=== PATIENT | male | born 1950 | race Caucasian/White ===

== ENCOUNTER → 2019-01-27 16:26 | Outpatient (CLI) | payer MEDICARE, SELFPAY ==
--- NOTE | 2019-01-27 | DI.MRI.S_ITS ---
PROCEDURE: MR KNEE LT WO CON INDICATIONS: Left knee pain. Painful to bend knee TECHNIQUE: Noncontrast sagittal PD fast spin echo and T2 fast spin echo with fat saturation, sagittal 3-D FLASH with fat saturation; coronal T1 spin echo and PD fast spin echo with fat saturation, and axial PD fast spin echo with fat saturation through the knee. COMPARISON: [facility] , MR, KNEE LT W/O CONTRAST, 01/13/2009, 9:45. FINDINGS: Image quality: Excellent. Menisci: There is medial meniscal extrusion. The medial meniscus is truncated, compatible with prior meniscectomy. The lateral meniscus demonstrates normal morphology and internal signal. The meniscal root ligaments appear intact. Cruciate ligaments: The anterior and posterior cruciate ligaments appear intact. Medial structures: The medial collateral ligament appears intact. The semimembranosus tendon insertionsand meniscocapsular junction appear intact. Visualized portions of the pes anserinus tendons appear normal. No abnormal bursal fluid. Lateral structures: The lateral collateral ligament and the biceps femoris tendon appear intact. The popliteus tendon appears normal. Iliotibial band appears normal. Anterior structures: The quadriceps is completely torn at the patellar insertion. There is 8 mm proximal retraction of the quadriceps tendon. The patellar tendon appears intact but thickened and irregular, consistent with tendinitis. Patellar is inferiorly subluxed secondary to quadriceps tendon rupture. No femoral trochlear dysplasia or ventral trochlear prominence. No edema in the infrapatellar fat pad. Bones and cartilage: No bone marrow contusions or fractures. There is tricompartmental cartilage thinning and signal degeneration, most pronounced in the patellofemoral compartment and medial femorotibial compartments. Joint space: There is moderate knee joint effusion. No Shelley's cyst. Normal appearing synovial plicae are incidentally noted. There is diffuse soft tissue edema around the knee. IMPRESSION: 1. Quadriceps tendon rupture with tendon retraction and inferior subluxation of patella. 2. The medial meniscal is truncated consistent with meniscectomy. There is medial meniscal extrusion. 3. Patella tendinitis. 4. Moderate knee joint effusion. 5. 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 6. Diffuse soft tissue edema around the knee. Dictated by: Liliana Acosta M.D. on 01/28/2019 at 7:34 Transcribed by: LYUBOV on 01/28/2019 at 7:37 Approved by: Liliana Acosta M.D. on 01/28/2019 at 9:08
== END ==
PROVIDERS: Family Provider Family Medicine; PCP Family Medicine; Visit Provider Physician Assistant
DX: M25.562 Pain in left knee (principal); M25.462 Effusion, left knee; S76.112A Strain of left quadriceps muscle, fascia and tendon, initial encounter; X58.XXXA Exposure to other specified factors, initial encounter; M76.52 Patellar tendinitis, left knee
CPT/HCPCS: 73721

== ENCOUNTER → 2021-04-06 08:57 | Outpatient (CLI) | payer MEDICARE, OTHER, SELFPAY ==
[2021-04-06 19:11] LABS: Add Manual Diff / Slide Review NO; Basophils Absolute Auto 100 /uL (0-100); Eosinophils Absolute Auto 200 /uL (0-450); Eosinophils Percent Auto 3.2 % (2-4); Hematocrit 41.9 % (41-53); Hemoglobin 14.5 g/dL (13.5-17.5); Lymphocytes Absolute Auto 2500 /uL (1100-4500); Lymphocytes Percent Auto 32.9 % (25-40); Mean Corpuscular HGB Conc 34.5 % (30-36); Mean Corpuscular Hemoglobin 30.6 PG (26-34); Mean Corpuscular Volume 88.9 fL (80-100); Monocytes Absolute Auto 700 /uL (0-900); Monocytes Percent Auto 9.5 % (3-14); Neutrophils Absolute Auto 4100 /uL (1500-7000); Neutrophils Percent Auto 53.4 % (50-75); Platelet Count 229 X10^3/uL (150-400); Red Blood Cell Count 4.72 X10^6/uL (4.5-5.9); White Blood Cell Count 7.6 X10^3/uL (4.5-11.0)
[2021-04-06 19:28] LABS: Alanine Aminotransferase 30 IU/L (<50); Albumin 4.2 g/dL (3.5-5.0); Albumin Globulin Ratio 1.6 (1.0-2.8); Alkaline Phosphatase 44 U/L (38-126); Aspartate Aminotransferase 55 IU/L (17-59); Bilirubin Total 0.9 mg/dL (0.2-1.3); Blood Urea Nitrogen 24 mg/dL (9-20); Calcium 9.4 mg/dL (8.4-10.2); Carbon Dioxide 30 mmol/L (22-32); Chloride 106 mmol/L (98-107); Cholesterol 151 mg/dL (140-199); Estimated Glomerular Filt Rate > 60.0 mL/min (>60); Globulin 2.6 g/dL (1.7-4.1); Glucose 91 mg/dL (80-110); HDL Cholesterol 54 mg/dL (40-60); HEMOLYSIS < 15 (0-50); LDL Cholesterol Calculated 76 mg/dL (<100); Potassium 4.3 mmol/L (3.4-5.1); Sodium 141 mmol/L (137-145); Total Protein 6.8 g/dL (6.3-8.2); Triglycerides 107 mg/dL (35-150)
[2021-04-06 20:04] LABS: Prostate Specific Antigen < 0.064 ng/mL (0.10-4.00)
== END ==
PROVIDERS: Family Provider Family Medicine; PCP Physician Assistant; Visit Provider Physician Assistant
DX: Z13.220 Encounter for screening for lipoid disorders (principal); C61 Malignant neoplasm of prostate; Z12.5 Encounter for screening for malignant neoplasm of prostate
CPT/HCPCS: 80053; 80061; 84153; 85025

== ENCOUNTER → 2022-04-23 10:19 | Outpatient (CLI) | payer MEDICARE, OTHER, SELFPAY ==
[2022-04-23 11:18] LABS: Alanine Aminotransferase 36 IU/L (<50); Albumin 4.3 g/dL (3.5-5.0); Albumin Globulin Ratio 1.4 (1.0-2.8); Alkaline Phosphatase 46 U/L (38-126); Aspartate Aminotransferase 65 IU/L (17-59); Bilirubin Total 0.9 mg/dL (0.2-1.3); Blood Urea Nitrogen 24 mg/dL (9-20); Calcium 9.2 mg/dL (8.4-10.2); Carbon Dioxide 31 mmol/L (22-32); Chloride 103 mmol/L (98-107); Estimated Glomerular Filt Rate > 60 mL/min (>60); Glucose 88 mg/dL (80-110); HEMOLYSIS < 15 (0-50); Potassium 4.4 mmol/L (3.4-5.1); Sodium 139 mmol/L (137-145); Total Protein 7.3 g/dL (6.3-8.2)
[2022-04-23 11:48] LABS: Prostate Specific Antigen < 0.064 ng/mL (0.10-4.00)
== END ==
PROVIDERS: Family Provider Family Medicine; PCP Physician Assistant; Referring Provider Physician Assistant; Visit Provider Physician Assistant
DX: C61 Malignant neoplasm of prostate (principal); Z12.5 Encounter for screening for malignant neoplasm of prostate
CPT/HCPCS: 36415; 80053; 84153

== ENCOUNTER → 2022-06-14 10:12 | Outpatient (CLI) | payer MEDICARE, OTHER, SELFPAY ==
[2022-06-14 18:40] LABS: D Dimer 676 ng/ml (<500)
[2022-06-14 18:50] LABS: Add Manual Diff / Slide Review NO; Basophils Absolute Auto 100 /uL (0-100); Eosinophils Absolute Auto 300 /uL (0-450); Eosinophils Percent Auto 4.2 % (2-4); Hematocrit 42.3 % (41-53); Hemoglobin 14.5 g/dL (13.5-17.5); Lymphocytes Absolute Auto 2500 /uL (1100-4500); Lymphocytes Percent Auto 31.6 % (25-40); Mean Corpuscular HGB Conc 34.2 % (30-36); Mean Corpuscular Hemoglobin 30.4 PG (26-34); Mean Corpuscular Volume 88.9 fL (80-100); Monocytes Absolute Auto 800 /uL (0-900); Monocytes Percent Auto 10.3 % (3-14); Neutrophils Absolute Auto 4200 /uL (1500-7000); Neutrophils Percent Auto 52.9 % (50-75); Platelet Count 222 X10^3/uL (150-400); Red Blood Cell Count 4.76 X10^6/uL (4.5-5.9); Red Cell Distribution Width 14.1 % (11.6-14.8)
[2022-06-14 18:58] LABS: Alanine Aminotransferase 38 IU/L (<50); Albumin 4.3 g/dL (3.5-5.0); Albumin Globulin Ratio 1.7 (1.0-2.8); Alkaline Phosphatase 54 U/L (38-126); Aspartate Aminotransferase 63 IU/L (17-59); Bilirubin Total 1.1 mg/dL (0.2-1.3); Blood Urea Nitrogen 25 mg/dL (9-20); Calcium 9.6 mg/dL (8.4-10.2); Carbon Dioxide 28 mmol/L (22-32); Chloride 104 mmol/L (98-107); Estimated Glomerular Filt Rate > 60 mL/min (>60); Globulin 2.6 g/dL (1.7-4.1); Glucose 83 mg/dL (80-110); HEMOLYSIS < 15 (0-50); Potassium 4.5 mmol/L (3.4-5.1); Sodium 138 mmol/L (137-145); Total Protein 6.9 g/dL (6.3-8.2)
[2022-06-14 19:07] LABS: NT-proBNP (BNP-Adult 18+) 437 pg/mL (<125)
[2022-06-14 19:29] LABS: TSH w/ Reflex to FT4 2.69 uIU/mL (0.47-4.68)
== END ==
PROVIDERS: Family Provider Family Medicine; PCP Physician Assistant; Visit Provider Physician Assistant
DX: Z95.3 Presence of xenogenic heart valve (principal); R06.02 Shortness of breath; R53.83 Other fatigue
CPT/HCPCS: 80053; 83880; 84443; 85025; 85379

== ENCOUNTER → 2022-07-04 08:35 | Outpatient (CLI) | payer MEDICARE, OTHER, SELFPAY ==
--- NOTE | 2022-07-08 09:02 | PM.PFT.1 ---
Pulmonary Function Test Referral & Results Date Patient Seen: 07/04/22 Results: The spirometry demonstrates an FVC of 4.05 L which is 91% of predicted. The FEV1 was measured at 3.15 L which is 97% of predicted. The FEV1/FVC ratio was 78 which is 106% of predicted. Following the administration of bronchodilator there was a 10% improvement in FEV1 and a 55% improvement in FEF 25-75%. Lung volumes show an SVC of 4.40 L which is 94% of predicted. The diffusing capacity was measured at 20.37 which is 60% of predicted. No hemoglobin value was provided, so no correction for potential anemia could be made, if appropriate. 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
== END ==
PROVIDERS: Family Provider Family Medicine; PCP Physician Assistant; Referring Provider Physician Assistant; Visit Provider Physician Assistant
DX: R06.02 Shortness of breath (principal); J98.8 Other specified respiratory disorders
CPT/HCPCS: 94060; 94726; 94729

== ENCOUNTER → 2022-07-30 08:34 | Outpatient (CLI) | payer MEDICARE, OTHER, SELFPAY ==
[2022-07-30 10:12] LABS: D Dimer 575 ng/ml (<500)
[2022-07-30 11:24] LABS: Alanine Aminotransferase 31 IU/L (<50); Albumin Globulin Ratio 1.9 (1.0-2.8); Alkaline Phosphatase 46 U/L (38-126); Aspartate Aminotransferase 51 IU/L (17-59); BUN Creatinine Ratio 26.5 (6-22); Bilirubin Total 0.9 mg/dL (0.2-1.3); Blood Urea Nitrogen 26 mg/dL (9-20); Calcium 8.8 mg/dL (8.4-10.2); Carbon Dioxide 29 mmol/L (22-32); Chloride 104 mmol/L (98-107); Estimated Glomerular Filt Rate > 60 mL/min (>60); Globulin 2.1 g/dL (1.7-4.1); Glucose 78 mg/dL (80-110); HEMOLYSIS < 15 (0-50); Potassium 4.2 mmol/L (3.4-5.1); Sodium 138 mmol/L (137-145); Total Protein 6.1 g/dL (6.3-8.2)
== END ==
PROVIDERS: Family Provider Family Medicine; PCP Physician Assistant; Referring Provider Physician Assistant; Visit Provider Physician Assistant
DX: R74.01 Elevation of levels of liver transaminase levels (principal); R79.89 Other specified abnormal findings of blood chemistry
CPT/HCPCS: 36415; 80053; 85379

== ENCOUNTER → 2022-10-09 11:49 | Outpatient (CLI) | payer MEDICARE, OTHER, SELFPAY ==
[2022-10-09 13:34] LABS: Prostate Specific Antigen Scrn < 0.064 ng/mL (0.1-4.0)
== END ==
PROVIDERS: Family Provider Family Medicine; PCP Physician Assistant; Referring Provider Physician Assistant; Visit Provider Physician Assistant
DX: Z12.5 Encounter for screening for malignant neoplasm of prostate (principal)
CPT/HCPCS: 36415; G0103

== ENCOUNTER → 2023-05-27 13:03 | Outpatient (CLI) | payer MEDICARE, OTHER, SELFPAY ==
[2023-05-27 19:51] LABS: Prostate Specific Antigen < 0.064 ng/mL (0.10-4.00)
== END ==
PROVIDERS: Family Provider Family Medicine; PCP Family Medicine; Visit Provider Family Medicine
DX: C61 Malignant neoplasm of prostate (principal)
CPT/HCPCS: 84153

== ENCOUNTER → 2023-10-20 11:58 | Outpatient (CLI) | payer MEDICARE, OTHER, SELFPAY ==
[2023-10-20 20:56] LABS: Prostate Specific Antigen < 0.064 ng/mL (0.10-4.00)
== END ==
PROVIDERS: Family Provider Family Medicine; PCP Family Medicine; Visit Provider Family Medicine
DX: C61 Malignant neoplasm of prostate (principal)
CPT/HCPCS: 84153

== ENCOUNTER → 2024-09-14 08:58 | Outpatient (CLI) | payer MEDICARE, OTHER, SELFPAY ==
--- NOTE | 2024-09-14 08:59 | DI.ECHO.S_ITS ---
[facility] : : [id number] : : [id number] : : Phone: [phone] Echocardiogram Report + + :Name: HUBER MULLEN Study Date: 09/14/2024 Height: 72 in : :[facility] ReadingLocation: Weight: 178 lb : : Gender: Male BSA: 2.0 m2 : :: 1950 Age: 73 yrs BP: 125/89 mmHg: :Reason For Study: NEAR SYNCOPE : :Ordering Physician: RICHARD, : :LUIS Performed By: Yasmnay Hameed : :Referring: LUIS RAMOS : + + Interpretation Summary 1) Normal left ventricular thickness, size, wall motion, and systolic function (EF 55-60%). 2) Mildly enlarged right ventricle with normal function. 3) The left atrium is severely dilated. 4) There is a bioprosthetic aortic valve that is well seated and opens reasonably well (mean gradient 22mmHg). There is trace aortic regurgitation. 5) The right ventricular systolic pressure is estimated to be at least 46 mmHg based on an estimated right atrial pressure of 8 mm Hg. 6) Compared to the Echo done 06/01/2013, bioprosthetic aortic valve is present on this study. Procedure: A two-dimensional transthoracic echocardiogram with color flow and Doppler was performed. The study quality was technically good. There is no prior echocardiogram noted for this patient. The patient was in normal sinus rhythm during the exam. Left Ventricle: The left ventricle is normal in size. There is normal left ventricular wall thickness. There is no ventricular septal defect visualized. The ejection fraction is estimated to be 55-60%. There are no focal wall motion abnormalities. Diastolic parameters suggest probable normal left ventricular diastolic function and normal filling pressures. Right Ventricle: The right ventricle is mildly dilated. The right ventricular systolic function is normal. Atria: The left atrium is severely dilated. The right atrium is severely dilated. There is no Doppler evidence for an interatrial shunt. Mitral Valve: The mitral valve leaflets appear mildly thickened, but open well. There is mild mitral annular calcification. There is borderline mitral valve prolapse. There is mild mitral regurgitation. Aortic Valve: The aortic valve is mildly calcified. There is a bioprosthetic aortic valve. The peak aortic velocity is 3.22 m/sec. The aortic valve mean gradient is 21.8 mmHg. There is trace aortic regurgitation. Tricuspid Valve: The tricuspid valve leaflets are thin and pliable. There is mild tricuspid regurgitation. The right ventricular systolic pressure is estimated to be at least 46 mmHg based on an estimated right atrial pressure of 8 mm Hg. Pulmonic Valve: The pulmonic valve leaflets are thin and pliable; valve motion is normal. There is mild pulmonic regurgitation. Great Vessels: The aortic root is mildly dilated. The ascending aorta is moderately enlarged. The pulmonary artery is normal size. The IVC is dilated (diameter is greater than 2.1 cm) yet it collapses greater than 50% with a sniff. This suggests a right atrial pressure of 8 mm Hg. Pericardium/ Pleura There is no pericardial effusion. There is no pleural effusion. MMode/2D Measurements & Calculations LVIDd: 5.9 cm LVOT diam: 2.3 cm LVIDs: 4.4 cm Ao root diam: 4.3 cm FS: 26.4 % asc Aorta Diam: 4.6 cm EPSS: 0.78 cm Ao Arch Diam (Prox Trans): 3.8 cm IVSd: 0.97 cm LVPWd: 1.0 cm LV alford. diameter/BSA (cm/m^2): 2.9 LV sys. diameter/BSA (cm/m^2): 2.2 LA A2 area: 31.6 cm2 RA long axis: 7.0 cm LA A4 area: 25.3 cm2 RA area: 36.4 cm2 LA length (vol): 6.5 cm RA vol: 159.8 ml LA vol: 104.4 ml RA : 78.8 ml/m2 LA vol index: 51.5 ml/m2 IVC diam: 3.0 cm RVD1 (basal): 4.8 cm RVD2 (mid): 3.0 cm TAPSE: 2.8 cm Doppler Measurements & Calculations Ao V2 max: 322.4 cm/sec LVOT Max Cristo: 100.8 cm/sec Ao V2 mean: 219.8 cm/sec LV V1 max P.1 mmHg Ao max P.6 mmHg LV V1 VTI: 23.4 cm Ao mean P.8 mmHg GRETEL(I,D): 1.5 cm2 Ao V2 VTI: 65.3 cm GRETEL(V,D): 1.3 cm2 sev ratio: 0.36 GRETEL indexed to BSA (cm^2/m^2): 0.76 MV E max cristo: 52.3 cm/sec TR max cristo: 310.1 cm/sec MV A max cristo: 26.8 cm/sec TR max P.5 mmHg MV E/A: 2.0 PA V2 max: 133.7 cm/sec Med Peak E' Cristo: 8.6 cm/sec PA V2 mean: 95.1 cm/sec E/E' med: 6.1 PA mean P.1 mmHg Lat Peak E' Cristo: 10.5 cm/sec PA pr(Accel): 37.9 mmHg E/E' lat: 5.0 E/e' average: 5.5 MV dec time: 0.20 sec SV(LVOT): 100.3 ml Reading Physician:[id number] PM
--- NOTE | 2024-09-14 08:59 | DI.MRI.S_ITS ---
PROCEDURE: MR ANGIO HEAD WO CON INDICATIONS: Loss of strength left arm and leg TECHNIQUE: Noncontrast axial 3-D [id number] MR angiogram, with 3-dimensional maximum intensity projection (MIP) reformats of the internal carotid arteries and posterior circulation then performed. COMPARISON: None. FINDINGS: Image quality: Excellent. Anterior circulation: Intracranial internal carotid arteries demonstrate normal size and intraluminal flow signal. The flow within the paired anterior cerebral arteries is normal and symmetric. The flow within the middle cerebral arteries is normal and symmetric. The anterior communicating artery is seen. No stenoses, occlusions, or aneurysms. Posterior circulation: Visualized portions of the vertebral arteries demonstrate normal caliber, and join to form a normal appearing basilar artery. The flow within the posterior cerebral arteries is normal and symmetric. No stenoses, occlusions, or aneurysms. IMPRESSION: Normal MR angiogram of the brain Approved by: Dallin Mayer M.D. on 09/14/2024 at 11:03
[2024-09-14 11:43] LABS: Prostate Specific Antigen < 0.064 ng/mL (0.10-4.00)
== END ==
PROVIDERS: Family Provider Family Medicine; PCP Family Medicine; Referring Provider Family Medicine; Visit Provider Family Medicine
DX: C61 Malignant neoplasm of prostate (principal); I08.1 Rheumatic disorders of both mitral and tricuspid valves; R20.2 Paresthesia of skin; R29.898 Other symptoms and signs involving the musculoskeletal system; R55 Syncope and collapse; I47.29 Other ventricular tachycardia; I77.89 Other specified disorders of arteries and arterioles; I77.810 Thoracic aortic ectasia; Z95.2 Presence of prosthetic heart valve
CPT/HCPCS: 36415; 70544; 84153; 93306

== ENCOUNTER → 2024-10-27 09:57 | Outpatient (CLI) | payer MEDICARE, OTHER, SELFPAY ==
[2024-10-27 19:28] LABS: Add Manual Diff / Slide Review NO; Hematocrit 41.3 % (41-53); Hemoglobin 14.1 g/dL (13.5-17.5); Lymphocytes Absolute Auto 2000 /uL (1100-4500); Mean Corpuscular HGB Conc 34.2 % (30-36); Mean Corpuscular Hemoglobin 30.9 PG (26-34); Mean Corpuscular Volume 90.1 fL (80-100); Platelet Count 209 X10^3/uL (150-400)
[2024-10-27 19:31] LABS: Blood Urea Nitrogen 26 mg/dL (9-20); Calcium 9.1 mg/dL (8.4-10.2); Carbon Dioxide 29 mmol/L (22-32); Chloride 104 mmol/L (98-107); Cholesterol 141 mg/dL (140-199); Estimated Glomerular Filt Rate > 60 mL/min (>60); Glucose 98 mg/dL (70-99); HDL Cholesterol 60 mg/dL (40-60); HEMOLYSIS 20 (0-50); Potassium 4.4 mmol/L (3.4-5.1); Sodium 139 mmol/L (137-145); Triglycerides 74 mg/dL (35-150)
[2024-10-27 20:00] LABS: TSH w/ Reflex to FT4 2.09 uIU/mL (0.47-4.68)
== END ==
PROVIDERS: Family Provider Family Medicine; PCP Family Medicine; Visit Provider Family Medicine
DX: Z95.3 Presence of xenogenic heart valve (principal); I47.10 Supraventricular tachycardia, unspecified; Z13.6 Encounter for screening for cardiovascular disorders; I47.29 Other ventricular tachycardia; I27.20 Pulmonary hypertension, unspecified; I73.9 Peripheral vascular disease, unspecified
CPT/HCPCS: 80048; 80061; 84443; 85025